=== PATIENT | male | born 1965 | race Caucasian/White ===

== ENCOUNTER 2017-04-30 10:22 | Emergency (ER) | payer OTHER ==
[~2017-04-30] VITALS: Ht 167.6 cm; Wt 81.6 kg
[~2017-04-30 10:22] MED LIST: ENALAPRIL MALEA20 MG
== END 2017-04-30 14:59 | disposition home or self-care (01) ==
LOC: ER 10:22
DX: I10 Essential (primary) hypertension (principal); M94.0 Chondrocostal junction syndrome [Tietze]

== ENCOUNTER 2023-12-21 17:12 | Emergency (ER) | payer OTHER ==
[~2023-12-21] VITALS: Ht 167.6 cm; Wt 86.6 kg
[2023-12-21] MEDS ORDERED: CEFTRIAXONE SODIUM 1,000 MG VIAL IM ONE (18:30)
[2023-12-21] MEDS ORDERED: CEFUROXIME500 MG PO (19:05)
[2023-12-21] MEDS ORDERED: CORTISPORIN EAR10 M1 OPHT (19:05)
== END 2023-12-21 20:29 | disposition home or self-care (01) ==
LOC: ER 17:14
DX: H66.91 Otitis media, unspecified, right ear (principal); I10 Essential (primary) hypertension; E03.8 Other specified hypothyroidism; Z88.6 Allergy status to analgesic agent